=== PATIENT | male | born 1970 | race Caucasian/White ===

== ENCOUNTER 2016-09-02 04:08 | Emergency (ER) | payer OTHER ==
[~2016-09-02] VITALS: Ht 177.8 cm; Wt 109.0 kg
[~2016-09-02 04:08] MED LIST: ALTOPREV20 MG PO; ASPIRIN81 M2 PO; CLEOCIN300 MG PO; Ecotrin PO; FLEXERIL10 MG PO; HYCODAN SYRUP480 ML PO; HYDROCHLOROTHIA25 MG PO; INDERIDE 40/1 TABLET PO; INDOCIN25 MG PO; LIDOCAINE20 MG/1 M5 PO; Lipitor PO; Lopressor PO; MELATONIN1 MG PO; METOPROLOL PO; METOPROLOL TART25 MG PO; MOTRIN800 MG PO; NORCO 7.5/321 TABLET PO; NORVASC10 MG PO; NORVASC5 MG PO; PEN-VEE K,VEET500 MG PO; PERCOCET 5/31 TABLET PO; PREVACID 24HR15 MG PO; PRILOSEC20 MG PO; SERTRALINE HCL50 MG PO; TRAMADOL HCL50 MG PO; ULTRAM50 MG PO; VALIUM5 MG PO; VENTOLIN HFA18 GM IH; WELLBUTRIN SR150 MG PO; ZITHROMAX Z-PA250 MG PO
[2016-09-02 04:39] LABS: HEMATOCRIT 45.2 % (38.0-50.0); MCH 33.9 PG (29.0-34.0); MCHC 36.7 G/DL (30.0-36.0); MCV 92.4 FL (86-99); MEAN PLAT.VOLUME 8.8 uM^3 (9.0-12.4); PLATELET COUNT 293 K/uL (156-360); RBC DIS.WIDTH-CV 12.4 % (11.8-14.6); RED BLOOD COUNT 4.89 M/uL (4.00-5.50); WHITE BLOOD COUNT 11.5 K/uL (4.1-10.2)
[2016-09-02 04:44] LABS: CHLORIDE 108 mEq/L (99-109); POTASSIUM 4.1 mEq/L (3.7-5.4); SODIUM 138 mEq/L (136-147)
[2016-09-02 04:45] LABS: GLUCOSE 135 mg/dL (70-99)
[2016-09-02 04:47] LABS: ANION GAP 9 MEQ/L (2-14)
[2016-09-02 04:49] LABS: GFR ESTIMATE (CALCULATED) > 59 mL/min/
[2016-09-02 04:50] LABS: UREA NITROGEN (BUN) 16 mg/dL (9-23)
[2016-09-02 04:56] LABS: TROP-I INTERPRETATION NEGATIVE; TROPONIN-I < 0.01 ng/mL (0.0-0.30)
[2016-09-02 13:07] LABS: TROP-I INTERPRETATION NEGATIVE; TROPONIN-I < 0.01 ng/mL (0.0-0.30)
[2016-09-02] MEDS ORDERED: PREDNISONE20 MG PO (13:23)
[2016-09-02] MEDS ORDERED: TESSALON PERLE100 MG PO (13:23)
[2016-09-02] MEDS ORDERED: VENTOLIN HFA18 GM IH (13:23)
[2016-09-02 13:29] VITALS: BP 140/85
== END 2016-09-02 13:33 | disposition home or self-care (01) ==
LOC: EME 04:08
PROVIDERS: Nurse Practitioner Family
DX: R06.02 Shortness of breath (principal); R06.2 Wheezing; R07.9 Chest pain, unspecified; F17.200 Nicotine dependence, unspecified, uncomplicated; E78.5 Hyperlipidemia, unspecified; I10 Essential (primary) hypertension; I25.2 Old myocardial infarction; K21.9 Gastro-esophageal reflux disease without esophagitis
CPT/HCPCS: 71020; 80048; 84484; 85027; 93005; 94640; 99281; 99284; J7512

== ENCOUNTER 2016-09-13 16:05 | Inpatient (IN) | payer OTHER ==
[2016-09-13] VITALS (8 sets, daily range): BP systolic 75–101; BP diastolic 35–57
[~2016-09-13] VITALS: Ht 182.9 cm; Wt 110.2 kg
[~2016-09-13 16:05] MED LIST changes: +PREDNISONE20 MG PO; +TESSALON PERLE100 MG PO
[2016-09-13 17:11] LABS: BASOPHIL COUNT 0.1 K/uL (0-0.1); EOSINOPHIL (%) 1.4 % (0-5); EOSINOPHIL COUNT 0.2 K/uL (0-0.3); HEMATOCRIT 46.7 % (38.0-50.0); IMMATURE GRANULOCYTE (%) 0.5 % (0.0-0.7); IMMATURE GRANULOCYTE COUNT 0.8 K/uL; LYMPHOCYTE COUNT 3.4 K/uL (1.0-2.8); MCH 33.9 PG (29.0-34.0); MCV 94.2 FL (86-99); MEAN PLAT.VOLUME 8.7 uM^3 (9.0-12.4); MONOCYTE (%) 9.6 % (3-12); MONOCYTE COUNT 1.7 K/uL (0-0.8); NEUTROPHIL (%) 68.9 % (45-76); PLATELET COUNT 328 K/uL (156-360); RBC DIS.WIDTH-CV 12.4 % (11.8-14.6); RBC DIS.WIDTH-SD 41.7 % (39-53); RED BLOOD COUNT 4.96 M/uL (4.00-5.50)
[2016-09-13 17:19] LABS: CHLORIDE 103 mEq/L (99-109); POTASSIUM 4.2 mEq/L (3.7-5.4); SODIUM 134 mEq/L (136-147)
[2016-09-13 17:21] LABS: GLUCOSE 114 mg/dL (70-99); PROTHROMBIN TIME 9.9 (9.2-11.2); PTT 29.8 (25-32)
[2016-09-13 17:23] LABS: ANION GAP 14 MEQ/L (2-14); TOTAL BILIRUBIN 0.6 mg/dL (0.0-1.0)
[2016-09-13 17:24] LABS: SERUM ETHYL ALCOHOL 124 mg/dL
[2016-09-13 17:25] LABS: GFR ESTIMATE (CALCULATED) 54 mL/min/
[2016-09-13 17:26] LABS: ALKALINE PHOSPHATASE 69 IU/L (3-129)
[2016-09-13 17:27] LABS: UREA NITROGEN (BUN) 12 mg/dL (9-23)
[2016-09-13 17:28] LABS: SALICYLATE < 5.0 MG/DL (15-30)
[2016-09-13 17:35] LABS: TROP-I INTERPRETATION NEGATIVE; TROPONIN-I 0.01 ng/mL (0.0-0.30)
[2016-09-13 18:03] LABS: WHITE BLOOD COUNT 17.4 K/uL (4.1-10.2)
[2016-09-13 22:04] LABS: METH RESISTANT S AUREUS PCR POSITIVE (NEGATIVE)
[2016-09-13 22:05] LABS: PROBE CHECK PASS
[2016-09-14] VITALS (22 sets, daily range): BP systolic 49–128; BP diastolic 17–83
[2016-09-14 05:05] LABS: BASE EXCESS -12.1 mEq/L (-3 to +3); BICARBONATE 14.1 mEq/L (22-26); CARBOXY HGB 1.9 % (0-5); COMMENTS - BLOOD GASES C+A+; DEVICE NC; METHEMOGLOBIN 1.4 % (0-1.5); O2 FLOW 4 L/MIN; PCO2 33 mm Hg (35-45); PO2 56 mm Hg (80-100); SITE RR; pH 7.24 (7.35-7.45)
[2016-09-14 05:28] LABS: ADD MIUA? YES; BILIRUBIN NEGATIVE; BLOOD NEGATIVE; COLOR DK YELLOW ((YELLOW)); GLUCOSE (STRIP) NEGATIVE; KETONES TRACE; LEUKOCYTES NEGATIVE; NITRITE NEGATIVE; PROTEIN (STRIP) TRACE; SPECIFIC GRAVITY 1.012 (1.000-1.030); UROBILINOGEN 0.2 MG/DL (0.2-1.0)
[2016-09-14 05:53] LABS: AMORPHOUS URATES CRYSTALS 2+; BACTERIA 3+; CASTS PRESENT /LPF; CRYSTALS PRESENT; EPITHELIAL CELLS 2+; HYALINE CASTS 0-5 /LPF; MUCUS 2+; RED BLOOD CELLS 0-5 /HPF (0-5); UCUL ADDED? NO; WHITE BLOOD CELLS 0-5 /HPF (0-5)
[2016-09-14 06:00] LABS: POINT-OF-CARE METER ID UU14162636; POINT-OF-CARE USER ID 609231305
[2016-09-14 06:06] LABS: AMPHETAMINES QUANT VALUE 0 NG/ML; BARBITUATES QUANT VALUE 0 NG/ML; BENZODIAZEPINES QUANT VALUE 0 NG/ML; BENZODIAZEPINES, URINE SCREEN Negative (200 ng/mL); OPIATES QUANTITATIVE VALUE 0 NG/ML; PHENCYCLIDINE QUANT VALUE 0 NG/ML
[2016-09-14 06:41] LABS: ANION GAP 13 MEQ/L (2-14); CHLORIDE 107 MEQ/L (99-109); GFR ESTIMATE (CALCULATED) 30 mL/min/; GLUCOSE 99 mg/dL (70-99); MAGNESIUM 1.7 mg/dl (1.3-2.7); POTASSIUM 7.6 MEQ/L (3.7-5.4); SAMPLE HEMOLYSIS CHECK 0; SAMPLE ICTERIC CHECK 1; SAMPLE LIPEMIA CHECK 0; SODIUM 133 MEQ/L (136-147); UREA NITROGEN (BUN) 25 mg/dL (9-23)
[2016-09-14 10:12] LABS: BASE EXCESS -14.8 mEq/L (-3 to +3); BICARBONATE 12.2 mEq/L (22-26); CARBOXY HGB 1.6 % (0-5); METHEMOGLOBIN 1.3 % (0-1.5); PCO2 32 mm Hg (35-45); PO2 56 mm Hg (80-100)
[2016-09-14 10:13] LABS: DEVICE VENT; FI02 100 %; MECHANICAL RATE 16 resp/min; MODE AC; PEEP 5 CM/H20; SITE ALINE; TIDAL VOLUME 500 ML; TOTAL RESP RATE 26 resp/min; pH 7.19 (7.35-7.45)
[2016-09-14 10:32] LABS: ANION GAP 10 MEQ/L (2-14); CHLORIDE 105 MEQ/L (99-109); GFR ESTIMATE (CALCULATED) 27 mL/min/; GLUCOSE 206 mg/dL (70-99); POTASSIUM 7.2 MEQ/L (3.7-5.4); SAMPLE HEMOLYSIS CHECK 0; SAMPLE ICTERIC CHECK 1; SAMPLE LIPEMIA CHECK 0; SODIUM 129 MEQ/L (136-147); UREA NITROGEN (BUN) 29 mg/dL (9-23)
[2016-09-14 13:05] LABS: EOSINOPHIL (%) 0 % (0-5); HEMATOCRIT 39.8 % (38.0-50.0); IMMATURE GRANULOCYTE (%) 1.1 % (0.0-0.7); LYMPHOCYTE COUNT 2.6 K/uL (1.0-2.8); MCH 34.3 PG (29.0-34.0); MCHC 35.2 G/DL (30.0-36.0); MCV 97.5 FL (86-99); MONOCYTE (%) 7.3 % (3-12); NEUTROPHIL (%) 80.7 % (45-76); RBC DIS.WIDTH-CV 12.5 % (11.8-14.6); RBC DIS.WIDTH-SD 44.5 % (39-53); RED BLOOD COUNT 4.08 M/uL (4.00-5.50)
[2016-09-14 13:06] LABS: IMMATURE GRANULOCYTE COUNT 0.3 K/uL; MONOCYTE COUNT 1.8 K/uL (0-0.8); NEUTROPHIL COUNT 19.4 K/uL (1.8-6.4)
[2016-09-14 13:44] LABS: POINT-OF-CARE METER ID UU14162636
[2016-09-14 13:56] LABS: HEMATOLOGY COMMENT 1 SMEAR COMPATIBLE; MEAN PLAT.VOLUME 10.6 uM^3 (9.0-12.4); PLAT.SUFFICIENCY ADEQUATE; USER ID SDF
[2016-09-14 14:06] LABS: PLATELET COUNT 206 K/uL (156-360)
[2016-09-14 15:05] LABS: POINT-OF-CARE METER ID UU14162636
[2016-09-14 15:10] LABS: ANION GAP 14 MEQ/L (2-14); CHLORIDE 104 MEQ/L (99-109); GFR ESTIMATE (CALCULATED) 26 mL/min/; GLUCOSE 241 mg/dL (70-99); SAMPLE HEMOLYSIS CHECK 3; SAMPLE ICTERIC CHECK 0; SAMPLE LIPEMIA CHECK 0; SODIUM 130 MEQ/L (136-147); UREA NITROGEN (BUN) 36 mg/dL (9-23)
[2016-09-14 15:13] LABS: POTASSIUM 5.2 MEQ/L (3.7-5.4)
[2016-09-14 15:59] LABS: HEMATOCRIT 35.2 % (38.0-50.0); MCV 97.5 FL (86-99)
[2016-09-14 16:09] LABS: POINT-OF-CARE METER ID UU14162636
[2016-09-14 16:46] LABS: ANION GAP 11 MEQ/L (2-14); CHLORIDE 105 MEQ/L (99-109); GFR ESTIMATE (CALCULATED) 25 mL/min/; GLUCOSE 317 mg/dL (70-99); POTASSIUM 5.3 MEQ/L (3.7-5.4); SAMPLE HEMOLYSIS CHECK 2; SAMPLE ICTERIC CHECK 0; SAMPLE LIPEMIA CHECK 1; SODIUM 130 MEQ/L (136-147); UREA NITROGEN (BUN) 34 mg/dL (9-23)
[2016-09-14 17:07] LABS: POINT-OF-CARE METER ID UU14162636
[2016-09-14 18:00] LABS: POINT-OF-CARE METER ID UU14162636
[2016-09-14 18:26] LABS: Estimated Average Glucose 114 mg/dL (70-123); HEMOGLOBIN A1c (GLYCOHEMOGLOB) 5.6 % HGB (Below 5.7)
[2016-09-14 19:34] LABS: POINT-OF-CARE METER ID UU14162636; POINT-OF-CARE USER ID LABHNS84
[2016-09-14 21:00] LABS: ANION GAP 9 MEQ/L (2-14); CHLORIDE 105 MEQ/L (99-109); GFR ESTIMATE (CALCULATED) 22 mL/min/; GLUCOSE 193 mg/dL (70-99); SAMPLE HEMOLYSIS CHECK 3; SAMPLE ICTERIC CHECK 0; SAMPLE LIPEMIA CHECK 2; SODIUM 131 MEQ/L (136-147); UREA NITROGEN (BUN) 34 mg/dL (9-23)
[2016-09-14 21:01] LABS: SCHISTOCYTES NONE SEEN
[2016-09-14 21:10] LABS: POTASSIUM 6.5 MEQ/L (3.7-5.4)
[2016-09-14 21:22] LABS: D-DIMER LATEX POSITIVE
[2016-09-14 21:23] LABS: POINT-OF-CARE METER ID UU14162636; POINT-OF-CARE USER ID LABHNS84
[2016-09-14 21:36] LABS: PROTHROMBIN TIME 21.1 (9.2-11.2)
[2016-09-14 22:23] LABS: POINT-OF-CARE METER ID UU14162636; POINT-OF-CARE USER ID LABHNS84
[2016-09-14 22:43] LABS: FIBRINOGEN 109 MG/DL (160-450)
[2016-09-14 22:45] LABS: POINT-OF-CARE METER ID UU14162636
== END 2016-09-14 22:46 | DRG 917 ==
LOC: EME → EDBD 16:05 → EME 16:05 → EDOF 18:35 → 4WEST 18:35
PROVIDERS: Emergency Medicine; Internal Medicine Nephrology; Internal Medicine Pulmonary Disease; Specialist; Surgery
DX: T44.7X2A Poisoning by beta-adrenoreceptor antagonists, intentional self-harm, initial encounter (principal); N17.0 Acute kidney failure with tubular necrosis; E87.2 Acidosis; T46.6X2A Poisoning by antihyperlipidemic and antiarteriosclerotic drugs, intentional self-harm, initial encounter; R00.1 Bradycardia, unspecified; I10 Essential (primary) hypertension; K21.9 Gastro-esophageal reflux disease without esophagitis; E78.5 Hyperlipidemia, unspecified; I25.10 Atherosclerotic heart disease of native coronary artery without angina pectoris; Z87.891 Personal history of nicotine dependence; F10.129 Alcohol abuse with intoxication, unspecified; Y90.6 Blood alcohol level of 120-199 mg/100 ml; E87.70 Fluid overload, unspecified; E66.9 Obesity, unspecified; R09.02 Hypoxemia; R57.1 Hypovolemic shock; E87.5 Hyperkalemia; I25.2 Old myocardial infarction
CPT/HCPCS: 31500; 36600; 71010; 80048; 80048 91; 80053; 81003; 82803; 82948; 83036; 83605; 83735; 84100; 84484; 85014; 85018; 85025; 85025 91; 85378; 85384; 85610; 85730; 87641; 93005; 94002; 94640; 94640 76; 94644; 94799; 99202; 99281; 99285; C1788; C9113; G0480; J0171; J0282; J0330; J0461; J0610; J1250; J1265; J1644; J1720; J1815; J2370; J2405; J2704; J2765; J3411; J7030; J7050